=== PATIENT | female | born 1930 | race Caucasian/White ===

== ENCOUNTER 2018-12-24 13:35 | Emergency (ER) | payer MEDICARE ==
[2018-12-24] MEDS ORDERED: Sodium Chloride 0.9% 10 ML Syringe FLUSH ONE (15:37)
--- NOTE | 2018-12-24 15:37 | EDM.PDOC ---
ED HPI GENERAL MEDICAL PROBLEM - General Chief Complaint: Chest Pain Stated Complaint: PAIN IN BACK BUT IN CHEST AREA TOO Time Seen by Provider: 12/24/18 15:35 Source of Information: Reports: Patient History Limitations: Reports: No Limitations - History of Present Illness INITIAL COMMENTS - FREE TEXT/NARRATIVE: pt arrived with pain in left chest. It hurts to take a deep breath and hurts alot to cough. Onset: Other (last 1.5 days. ) Duration: Hour(s): Location: Reports: Chest, Other (pt has had chills and a fever. ) Associated Symptoms: Reports: Chest Pain, Cough, Shortness of Breath - Related Data Allergies Allergy/AdvReac Type Severity Reaction Status Date / Time No Known Allergies Allergy Verified 12/24/18 15:40 Home Meds: Home Meds Triamcinolone Acetonide [Triamcinolone Acetonide 0.5%] 15 gm .XX ASDIRECTED PRN 12/25/18 [History] ED ROS GENERAL - Review of Systems Review Of Systems: See Below Constitutional: Reports: Fever, Chills, Other (pain in the left chest. ) HEENT: Reports: No Symptoms Respiratory: Reports: Shortness of Breath, Pleuritic Chest Pain, Cough Cardiovascular: Reports: Other (left sided chest pain worse with deep breathing) Endocrine: Reports: No Symptoms GI/Abdominal: Reports: No Symptoms : Reports: No Symptoms Musculoskeletal: Reports: No Symptoms Skin: Reports: No Symptoms Neurological: Reports: No Symptoms Psychiatric: Reports: No Symptoms ED EXAM, GENERAL - Physical Exam Exam: See Below Free Text/Narrative:: pt arrived with pain in the left chest. She hurts alot when she takes a deep breath. Exam Limited By: No Limitations General Appearance: Alert, Anxious, Moderate Distress Ears: Normal TMs Nose: Normal Inspection Throat/Mouth: Normal Inspection Head: Atraumatic Neck: Normal Inspection Respiratory/Chest: Decreased Breath Sounds, Other (pt has alot of pain with deep breathing. She does have a temp of 101. ) Cardiovascular: Regular Rate, Rhythm GI/Abdominal: Soft, Non-Tender (Female) Exam: Deferred Rectal (Female) Exam: Deferred Back Exam: Normal Inspection Extremities: Normal Inspection Neurological: Alert, Oriented, Normal Cognition Psychiatric: Normal Affect Course - Vital Signs Last Recorded V/S: Last Vital Signs Temp 38.5 C H 12/24/18 14:28 Pulse 87 12/24/18 17:42 Resp 12 12/24/18 17:42 BP 118/65 12/24/18 17:42 Pulse Ox 96 12/24/18 16:20 - Orders/Labs/Meds Labs: Laboratory Tests 12/24/18 12/24/18 12/24/18 Range/Units 14:46 14:46 14:46 WBC 9.1 (4.5-11.0) K/uL RBC 4.28 (3.30-5.50) M/uL Hgb 12.4 (12.0-15.0) g/dL Hct 38.7 (36.0-48.0) % MCV 90 (80-98) fL MCH 29 (27-31) pg MCHC 32 (32-36) % Plt Count 345 (150-400) K/uL Neut % (Auto) 77 H (36-66) % Lymph % (Auto) 12 L (24-44) % [place] % (Auto) 11 H (2-6) % Eos % (Auto) 0 L (2-4) % Baso % (Auto) 0 (0-1) % Sodium 138 L (140-148) mmol/L Potassium 4.3 (3.6-5.2) mmol/L Chloride 103 (100-108) mmol/L Carbon Dioxide 27 (21-32) mmol/L Anion Gap 12.3 (5.0-14.0) mmol/L BUN 14 (7-18) mg/dL Creatinine 1.0 (0.6-1.0) mg/dL Est Cr Clr Drug Dosing 34.87 mL/min Estimated GFR (MDRD) 53 L (>60) Glucose 114 H (74-106) mg/dL Lactic Acid (0.4-2.0) mmol/L Calcium 9.4 (8.5-10.1) mg/dL Total Bilirubin 0.3 (0.2-1.0) mg/dL AST 37 (15-37) U/L ALT 25 (12-78) U/L Alkaline Phosphatase 126 H (46-116) U/L Troponin I (0.000-0.056) ng/mL C-Reactive Protein 3.08 H (0.0-0.3) mg/dL Total Protein 7.8 (6.4-8.2) g/dL Albumin 3.2 L (3.4-5.0) g/dL Globulin 4.6 H (2.3-3.5) g/dL Albumin/Globulin Ratio 0.7 L (1.2-2.2) Urine Color (YELLOW) Urine Appearance (CLEAR) Urine pH (5.0-8.0) Ur Specific [place] (1.008-1.030) Urine Protein (NEGATIVE) mg/dL Urine Glucose (UA) (NEGATIVE) mg/dL Urine Ketones (NEGATIVE) mg/dL Urine Occult Blood (NEGATIVE) Urine Nitrite (NEGATIVE) Urine Bilirubin (NEGATIVE) Urine Urobilinogen (0.2-1.0) EU/dL Ur Leukocyte Esterase (NEGATIVE) Urine RBC (0-5) Urine WBC (0-5) Ur Epithelial Cells Amorphous Sediment Urine Bacteria Urine Mucus 12/24/18 12/24/18 12/24/18 Range/Units 14:46 15:32 16:30 WBC (4.5-11.0) K/uL RBC (3.30-5.50) M/uL Hgb (12.0-15.0) g/dL Hct (36.0-48.0) % MCV (80-98) fL MCH (27-31) pg MCHC (32-36) % Plt Count (150-400) K/uL Neut % (Auto) (36-66) % Lymph % (Auto) (24-44) % [place] % (Auto) (2-6) % Eos % (Auto) (2-4) % Baso % (Auto) (0-1) % Sodium (140-148) mmol/L Potassium (3.6-5.2) mmol/L Chloride (100-108) mmol/L Carbon Dioxide (21-32) mmol/L Anion Gap (5.0-14.0) mmol/L BUN (7-18) mg/dL Creatinine (0.6-1.0) mg/dL Est Cr Clr Drug Dosing mL/min Estimated GFR (MDRD) (>60) Glucose (74-106) mg/dL Lactic Acid 1.5 (0.4-2.0) mmol/L Calcium (8.5-10.1) mg/dL Total Bilirubin (0.2-1.0) mg/dL AST (15-37) U/L ALT (12-78) U/L Alkaline Phosphatase (46-116) U/L Troponin I < 0.017 (0.000-0.056) ng/mL C-Reactive Protein (0.0-0.3) mg/dL Total Protein (6.4-8.2) g/dL Albumin (3.4-5.0) g/dL Globulin (2.3-3.5) g/dL Albumin/Globulin Ratio (1.2-2.2) Urine Color Yellow (YELLOW) Urine Appearance Turbid A (CLEAR) Urine pH 6.0 (5.0-8.0) Ur Specific [place] 1.020 (1.008-1.030) Urine Protein Negative (NEGATIVE) mg/dL Urine Glucose (UA) Negative (NEGATIVE) mg/dL Urine Ketones Negative (NEGATIVE) mg/dL Urine Occult Blood Trace-intact H (NEGATIVE) Urine Nitrite Negative (NEGATIVE) Urine Bilirubin Negative (NEGATIVE) Urine Urobilinogen 0.2 (0.2-1.0) EU/dL Ur Leukocyte Esterase Moderate H (NEGATIVE) Urine RBC 0-5 (0-5) Urine WBC Packed H (0-5) Ur Epithelial Cells Moderate Amorphous Sediment Not seen Urine Bacteria Moderate Urine Mucus Not seen Meds: Medications Discontinued Medications Generic Name Dose Route Start Last Admin Trade Name Charlesq PRN Reason Stop Dose Admin Azithromycin 500 mg 12/24/18 18:11 12/24/18 18:17 Zithromax PO 12/24/18 18:12 500 mg ONETIME ONE Administration Hydromorphone HCl 0.5 mg 12/24/18 17:57 12/24/18 18:03 Dilaudid IVPUSH 12/24/18 17:58 0.5 mg ONETIME ONE Administration Sodium Chloride 1,000 mls @ 999 mls/hr 12/24/18 15:45 Normal Saline IV ASDIRECTED TOM Sodium Chloride 1,000 mls @ 999 mls/hr 12/24/18 15:45 12/24/18 18:04 Normal Saline IV 999 mls/hr ASDIRECTED TOM Administration Sodium Chloride 75 mls @ 3 mls/sec 12/24/18 15:45 12/24/18 15:56 Normal Saline IV 12/24/18 17:00 3 mls/sec ASDIRECTED TOM Administration Ceftriaxone Sodium 1 gm/ 50 mls @ 100 mls/hr 12/24/18 18:00 12/24/18 18:08 Sodium Chloride IV 12/24/18 18:29 100 mls/hr ONETIME ONE Administration Iopamidol 100 ml 12/24/18 15:45 12/24/18 15:56 Isovue-300 (61%) IV 12/24/18 17:00 100 ml . DIRECTED TOM Administration Sodium Chloride 10 ml 12/24/18 15:37 12/24/18 15:56 Saline Flush FLUSH 12/24/18 15:38 10 ml ONETIME ONE Administration - Re-Assessments/Exams Free Text/Narrative Re-Assessment/Exam: 12/24/18 18:07 chest xray shows a large mass or infiltrate in the left upper chest. Her wbc is normal. She has a positive urine for infection. She has 12/24/18 18:20 a temp of 101 Departure - Departure Time of Disposition: 18:21 Disposition: DC/Tfer to Acute Hospital 02 Reason for Transfer *Q: Primary PCI Indicated Condition: Fair Clinical Impression: Mass of upper lobe of left lung, UTI (urinary tract infection), Dehydration Instructions: Urinary Tract Infection, Adult, [id number], Dehydration, Adult , [id number], Pulmonary Nodule, [id number] Referrals: Emmanuel Coronado MD [Primary Care Provider] - Forms: ED Department Discharge Care Plan Goals: transfer by private car to [facility]-- per pts request.
[2018-12-24] MEDS ORDERED: Sodium Chloride 0.9% 1,000 ML IV SCH ×2 (15:45)
[2018-12-24] MEDS ORDERED: Sodium Chloride 0.9% 75 ML IV SCH (15:45)
[2018-12-24] MEDS ORDERED: Iopamidol 612 MG/ML 100 ML Bottle IV SCH (15:45)
--- NOTE | 2018-12-24 15:57 | CRLCR ---
INDICATION: Right-sided chest pain, fever COMPARISON: None TECHNIQUE: Frontal view of the chest FINDINGS/IMPRESSION: Large area of airspace consolidation in the left lung, compatible with pneumonia in the appropriate clinical setting. Follow-up is recommended in 4-6 weeks to ensure resolution. The right lung is clear. There is no pleural effusion or pneumothorax. The cardiomediastinal silhouette is within normal limits. The osseous structures are unremarkable. Dictated by Claudia Hassan MD @ Dec 24 2018 3:52PM Signed by Dr. Claudia Hassan @ Dec 24 2018 3:54PM
--- NOTE | 2018-12-24 17:02 | CRLCT ---
INDICATION: Abnormal chest x-ray, infiltrate versus mass left lung TECHNIQUE: Contrast enhanced axial CT imaging through the chest. 100 mL Isovue-300 contrast agent was administered intravenously. sagittal and coronal reconstructions are provided. COMPARISON: Chest x-ray two views 12/24/2018 FINDINGS: There is a large heterogeneous masslike opacity in the posterior left upper lobe measuring up to 9.6 x 6.2 x 9.9 cm in AP, transverse, and craniocaudal dimensions respectively, corresponding to abnormality seen on radiography. There is mild adjacent ground-glass airspace opacity superiorly, likely relating to postobstructive atelectasis. No additional pulmonary nodules or masses are demonstrated. There is no pleural effusion or pneumothorax. A single prominent lymph node is noted in the precarinal station, measuring up to 8 mm in short axis. The heart is non-enlarged. There is no pericardial effusion. There is normal caliber of the main pulmonary artery and thoracic aorta. The included osseous structures are unremarkable. There is a large hiatal hernia containing the majority of the stomach. No significant abnormality is demonstrated in the visualized upper abdomen. IMPRESSION: 1. Large heterogeneous masslike opacity in the posterior left upper lobe measuring up to 9.9 cm. This is favored to represent neoplasm. No significant mediastinal lymphadenopathy and no evidence of chest wall invasion. Tissue sampling is recommended for confirmation. Findings and recommendations were discussed with Dr Byrd at 4:58 p.m. 2. Large hiatal hernia. Please note that all CT scans at this facility use dose modulation, iterative reconstruction, and/or weight-based dosing when appropriate to reduce radiation dose to as low as reasonably achievable. Dictated by Claudia Hassan MD @ Dec 24 2018 5:01PM Signed by Dr. Claudia Hassan @ Dec 24 2018 5:01PM
[2018-12-24] MEDS ORDERED: HYDROmorphone 0.5 MG/0.5 ML Syringe IVPUSH ONE (17:57)
[2018-12-24] MEDS ORDERED: cefTRIAXone 1 GM in Sodium Chloride 0.9% 50 ML IV ONE (18:00)
[2018-12-24] MEDS ORDERED: Azithromycin 250 MG Tab PO ONE (18:11)
== END 2018-12-24 19:38 ==
LOC: JP.ED 13:35
DX: R91.8 Other nonspecific abnormal finding of lung field (principal); N39.0 Urinary tract infection, site not specified; E86.0 Dehydration
CPT/HCPCS: 36415; 71045; 71260; 80053; 81001; 83605; 84484; 85025; 86140; 87040; 87086; 93005; 93010; 96361; 96365; 96375; 99285-25; A9270-GY; J0696; J1170; J7030; J7050; Q9967